=== PATIENT | male | born 1955 | race Caucasian/White ===

== ENCOUNTER 2022-10-09 13:25 | Outpatient (REF) | payer MEDICARE, SELFPAY ==
--- NOTE | ~2022-10-09 | CT_ITS ---
EXAMINATION: LUNG CANCER SCREENING CT CHEST WITHOUT CONTRAST CLINICAL INFORMATION: Current smoker with 54 pack year history COMPARISON: None TECHNIQUE: Multidetector volumetric CT imaging of the chest was obtained noncontrast using low dose screening CT technique. Axial thin section 0.625 mm reformations in soft tissue and lung windows were obtained. Sagittal and coronal reformations were obtained. Axial MIP images were also created and reviewed. This CT examination was performed using dose optimization techniques as appropriate, variously including the following: *Automated exposure control *Adjustment of mA and/or kV according to patient size (this includes techniques or standardized protocols for targeted exams where dose is matched to indication/reason for exam; i.e. extremities or head) *Use of iterative reconstruction technique TOTAL EXAM DLP: 57.3 mGy-cm FINDINGS: PULMONARY NODULES (see cotton images): No suspicious pulmonary nodules. LUNGS / PLEURA: Moderate emphysema. Diffuse moderate bronchial wall thickening without bronchiectasis. Dependent polypoid filling defect within the proximal left main stem bronchus at the diane highly suspected to represent secretions.. No pleural effusion or pneumothorax. MEDIASTINUM / YOSI: Heart normal in size without pericardial effusion. Ascending aorta measures 4.0 cm. No lymphadenopathy. Coronary calcifications present. Imaged thyroid gland unremarkable. CHEST WALL / AXILLA: Unremarkable. UPPER ABDOMEN: Included portions grossly unremarkable allowing for limitations in technique. OSSEOUS STRUCTURES: No acute or suspicious osseous abnormalities. CT/CT lung screening IMPRESSION: * There is a 6 mm dependent polypoid structure in the proximal left main stem bronchus highly favored to represent secretions, however technically indeterminant as there is no appreciable interspersed air to confirm that it might represent secretions/mucous (as opposed to soft tissue nodule). Therefore, short interval follow-up is required. * No pulmonary nodules of significance. * Moderate emphysema. ASSESSMENT: Lung RADS category: 4 A. Suspicious. Findings for which additional diagnostic testing and/or tissue sampling is recommended. Three-month low-dose CT is recommended. PET/CT scan may be used when there is a greater than or equal to 8 mm solid component. Probability of malignancy 5-15%. RECOMMENDATION: Follow up low dose CT chest in 3 months.
== END 2022-10-09 13:26 | disposition home or self-care (01) ==
LOC: HO.CT 13:25
PROVIDERS: PCP Internal Medicine; Visit Provider Physician Assistant Medical
DX: Z12.2 Encounter for screening for malignant neoplasm of respiratory organs (principal); F17.210 Nicotine dependence, cigarettes, uncomplicated
CPT/HCPCS: 71271; G0296

== ENCOUNTER 2023-05-18 07:39 | Outpatient (REF) | payer MEDICARE, SELFPAY ==
--- NOTE | ~2023-05-18 | CT_ITS ---
EXAMINATION: CT CHEST SCREENING CLINICAL INFORMATION: Nicotine dependence, smokes 1 pack per day with 30 pack-year history. COMPARISON: CT lung screening 10/09/2022, CT abdomen/pelvis 05/15/2009 (report only). TECHNIQUE: Multidetector volumetric CT imaging of the chest is performed without contrast using low-dose technique. Additional 2D coronal and sagittal reformatted images and axial 3D maximum intensity projection (MIP) images are generated on the CT workstation. This CT examination was performed using dose optimization techniques as appropriate, variously including the following: *Automated exposure control *Adjustment of mA and/or kV according to patient size (this includes techniques or standardized protocols for targeted exams where dose is matched to indication/reason for exam; i.e. extremities or head) *Use of iterative reconstruction technique DLP: 47 mGy-cm FINDINGS: LUNGS: Mild emphysematous changes are present. Bronchial wall thickening is seen. No suspicious pulmonary nodules. The previously seen dependent polypoid filling defect within the proximal left main stem bronchus at the diane is no longer present and represented secretions which have cleared. No concerning lung masses or nodules are seen. MEDIASTINUM: The mediastinum is unremarkable. A retrosternal lymph node has decreased in size from 8 to 6 mm. Thyroid is unremarkable. The ascending aorta is prominent at 4 cm, unchanged. CORONARY ARTERY CALCIFICATION: None visualized on this study. PLEURA: There is no pleural effusion. No pleural mass or thickening. AXILLA: No lymphadenopathy. UPPER ABDOMEN: The liver has a nodular border appearing somewhat cirrhotic with hypertrophy of the left lobe. A tiny amount of ascites is present around the liver and spleen. OSSEOUS STRUCTURES: Unremarkable. CT/CT lung screen follow up IMPRESSION: No findings to suggest malignancy in the chest. Prominent ascending aorta at 4.0 cm. Nodular liver with small amount of ascites suggests cirrhosis. Please correlate clinically and with LFTs. ASSESSMENT: Lung-RADS category 1: Negative. RECOMMENDATION: Routine annual low-dose CT screening in 12 months.
== END 2023-05-18 07:40 | disposition home or self-care (01) ==
LOC: HO.CT 07:39
PROVIDERS: PCP Internal Medicine; Visit Provider Physician Assistant Medical
DX: F17.210 Nicotine dependence, cigarettes, uncomplicated (principal)
CPT/HCPCS: 71250

== ENCOUNTER 2023-07-02 09:40 | Outpatient (REF) | payer MEDICARE, SELFPAY ==
--- NOTE | ~2023-07-02 | US_ITS ---
EXAMINATION: US RETROPERITONEAL LIMITED (AORTA) CLINICAL INFORMATION: Smoker. COMPARISON: None available. TECHNIQUE: Wilkes-scale, color Doppler and spectral Doppler evaluation of the abdominal aorta. FINDINGS: Atherosclerosis. The measurements of the aorta in maximum AP and transverse dimensions respectively are as follows: Proximal: 2.6 x 2.4 cm. Mid: 2.1 x 2.3 cm. Distal: 1.9 x 2.0 cm. PSV: 97.2 cm/s. The measurements of the common iliac arteries in maximum AP and TRV dimensions are as follows: Right Common Iliac Artery: 1.0 x 1.0 cm. Left Common Iliac Artery: 0.93 x 1.0 cm. US/US aorta IMPRESSION: No abdominal aortic aneurysm. Atherosclerosis.
== END 2023-07-02 09:41 | disposition home or self-care (01) ==
LOC: HO.HMGCX 09:40
PROVIDERS: PCP Internal Medicine; Visit Provider Internal Medicine
DX: Z13.6 Encounter for screening for cardiovascular disorders (principal); F17.210 Nicotine dependence, cigarettes, uncomplicated
CPT/HCPCS: 76775

== ENCOUNTER 2024-07-20 08:55 | Outpatient (AMB) | payer MEDICARE, SELFPAY ==
[2024-07-20 09:08] VITALS: BP 130/90; PULSE 57; O2SAT 98
--- NOTE | 2024-07-20 09:08 | MHC.OFFWIV ---
Intake Vital Signs 07/20/24 09:08 Weight 159 lb BP 130/90 H Blood Pressure Location Lt brachial Position Sitting Pulse 57 Pulse Source Pulse Oximeter Pulse Oximetry (%) 98 Oxygen Delivery Method Room Air Intake Visit Reasons: EP-sob Intake Note: Patient here for SOB that has been present for a while now. Patient Tobacco Use Status: Current everyday Tobacco user Allergies No Known Allergies Allergy (Unverified 07/20/24 09:15) Do you need a note to return to daycare/school/sports/work: No HPI HPI Comments History of Present Illness Details 69 y/o male patient who presents to the walk in clinic with c/o Dry mouth for over a year now. Reports waking up every morning with Dry sticky mouth. Denies taking any routine medications or OTC supplements. Denies seeing a Dentist for years now or having routine dental cleanings. Reports a very bad experience in the past. Pt got upset with me during the appointment because I could not resolve his issue. Reports that he came here today to see his PCP and he does not understand why he is seeing me instead. Pt walked out of in the middle of examination. [facility] Medical History (Updated 07/20/24 @ 10:10 by Kenzie Zavala NP) Dry mouth, unspecified Acute respiratory disease History of rib fracture Nicotine dependence, cigarettes, uncomplicated Colonoscopy refused Immunization refused Tremor of both hands Lesion of skin of scalp Cataracts, bilateral Increasing shortness of breath Chronic cough Closed right hand fracture History of skull fracture Decreased hearing of both ears Surgical History (Updated 07/14/22 @ 01:52 by Raven Lizama MD) No pertinent past surgical history Family History (Updated 07/03/22 @ 09:36 by Raven Lizama MD) Mother Alzheimer's dementia Uterine cancer Brother Hepatitis C Social History (Updated 10/09/22 @ 13:27 by Krystyna Peña PA-C) Housing: House Patient Tobacco Use Status: Current everyday Tobacco user Years Smoked: (current smoker - onset 11, x 54yrs, max 1-2ppd, now 1/4 to 1ppd - 70pyh) e-Cigarette/Vaping Use: Never Used service: No Current occupational status: employed Cognitive needs: No Hearing needs: No Vision needs: Yes Review of Systems Const All systems reviewed & are unremarkable except as noted in HPI and below Physical Exam Vital Signs: Last Vital Signs Pulse 57 07/20/24 09:08 BP 130/90 H 07/20/24 09:08 Pulse Ox 98 07/20/24 09:08 Oxygen Delivery Method Room Air 07/20/24 09:08 Const General: no acute distress and anxious Orientation/consciousness: patient oriented x3 Neuro General: patient oriented x3, gait normal and moves all extremities Psych Speech and movement: Normal speech and movement present Affect: Irritable affect present Assessment & Plan Assessment & Plan (1) Dry mouth, unspecified: Code(s): R68.2 - Dry mouth, unspecified Plan: Incomplete Examination. Pt walked out of the appointment upset. Advised Pt to scheduled an appointment with his PCP. Advised to follow up with a Dentist regarding Dry mouth and dental care. Coding Level of Care Code Est Pt Level 4 (78541) Diagnoses Dry mouth, unspecified R68.2 Time Spent (min) 20
== END 2024-07-20 10:03 | disposition home or self-care (01) ==
PROVIDERS: PCP Internal Medicine; Visit Provider Nurse Practitioner Family
DX: R68.2 Dry mouth, unspecified (principal)

== ENCOUNTER → 2024-07-20 08:55 | Outpatient (BNVA) | payer MEDICARE, SELFPAY | PROVIDERS: PCP Internal Medicine; Visit Provider Nurse Practitioner Family | DX: R68.2 Dry mouth, unspecified (principal) | CPT/HCPCS: 99212 ==

== ENCOUNTER → 2024-09-14 12:50 | Outpatient (BNVA) | payer MEDICARE, SELFPAY | PROVIDERS: PCP Internal Medicine; Visit Provider Internal Medicine | DX: Z13.89 Encounter for screening for other disorder (principal) ==

== ENCOUNTER 2024-10-16 09:23 | Emergency (ER) | payer MEDICARE, SELFPAY ==
--- NOTE | ~2024-10-16 | XR_ITS ---
EXAMINATION: XR CHEST CLINICAL INFORMATION: CP COMPARISON: None available. TECHNIQUE: Frontal view of the chest was obtained. FINDINGS: The cardiac, hilar, and mediastinal contours are normal. The lungs are mildly hyperaerated, suggesting COPD. Lungs are otherwise clear bilaterally. No pneumothorax or effusion. No focal osseous or soft tissue abnormality. XR/XR chest 1V IMPRESSION: Mild pulmonary hyperaeration. No active superimposed disease. Electronically signed by: Jono Slaughter MD 10/16/2024 09:53 AM EDT
--- NOTE | ~2024-10-16 | CT_ITS ---
EXAMINATION: CT ANGIOGRAM CHEST CLINICAL INFORMATION: Atrial flutter DLP: 233 mGY*cm COMPARISON: CT chest lung screening May 18, 2023 TECHNIQUE: Multiple axial images were obtained through the chest after the administration of 65 mL of Omnipaque 350 intravenous contrast. Extensive vascular post-processing including two-dimensional and three-dimensional reformatted images were created and reviewed on an independent workstation. This CT examination was performed using dose optimization techniques as appropriate, variously including the following: *Automated exposure control *Adjustment of mA and/or kV according to patient size (this includes techniques or standardized protocols for targeted exams where dose is matched to indication/reason for exam; i.e. extremities or head) *Use of iterative reconstruction technique FINDINGS: Vasculature: There is opacification through secondary divisions and partial opacification through the tertiary divisions the pulmonary arteries. There are no filling defects in those portions of the examination. Minimal atherosclerotic calcification is seen in the aortic arch. LUNGS: Again noted is moderate centrilobular hyperlucency and otherwise groundglass densities in the lungs. There is a new 7x11 mm solid pulmonary nodule in the posterior basal right lower lobe with angular margins contacting pleura. Mediastinum: Heart size is within normal limits. There is no adenopathy. Coronary artery calcifications: None visualized Pleura: There is no pleural thickening and no pleural effusion. Axilla: No mass or adenopathy. Upper abdomen: Liver has a nodular contour and scallop margins. There is perihepatic ascites. Coarse calcifications in the gallbladder fossa are likely within a decompressed gallbladder. Bones: Bridging anterior osteophytes are present in the mid and lower thoracic spine and there is diffuse mild disc space narrowing. CT/CT angio chest PE protocol IMPRESSION: No evidence of pulmonary artery embolus. Tertiary divisions of pulmonary arteries were incompletely also opacified due to bolus timing. There is a new 7 x 11 mm pulmonary nodule in the posterior basal right lower lobe. Fleischner Society recommends the following: Consider CT at 3 months, PET/CT, or consultation for biopsy. Moderate centrilobular emphysema. Cirrhotic liver with a small amount of ascites. Cholelithiasis. Fleischner guidelines were followed. Electronically signed by: Dank Coreas MD 10/16/2024 12:06 PM EDT
--- NOTE | 2024-10-16 09:25 | ECG_ITS ---
Test Reason : cp Blood Pressure : */* mmHG Vent. Rate : 156 BPM Atrial Rate : * BPM P-R Int : * ms QRS Dur : 122 ms QT Int : 292 ms P-R-T Axes : * 67 75 degrees QTcB Int : 470 ms Supraventricular tachycardia Nonspecific ST abnormality Abnormal ECG When compared with ECG of 15-May-2009 09:35, Supraventricular tachycardia has replaced Sinus rhythm Vent. rate has increased by 90 bpm Referred By: Generic ED Physician Electronically Signed By: CORY GRIFFITHS MD
[2024-10-16 09:48] VITALS: BP 147/84; PULSE 156; RESP 18; TEMP 36.7; O2SAT 96; BMI 26.2
--- NOTE | 2024-10-16 09:55 | ED_ITS ---
HPI - Chest Pain General Chief Complaint: Chest Pain Stated Complaint: chest Pain Time Seen by Provider: 10/16/24 09:55 Source: patient Mode of arrival: ambulatory Limitations: no limitations History of Present Illness ED Provider: HPI narrative: 69-year-old male, states has had recurrent history of chest pain, prior workup to see if he has lung cancer, presenting with chest pain that started 08:00 in the morning, nonexertional no fevers chills no nausea no vomiting. He is a smoker. Related Data Previous Rx's ?Medication ?Instructions ?Recorded aspirin 81 mg chewable tablet 81 mg PO DAILY #90 tabs 10/16/24 (Tomasz Chewable Low Dose Aspirin) metoprolol succinate 25 mg capsule 25 mg PO DAILY #90 ea 10/16/24 sprinkle, ext. release 24 hr Allergies Allergy/AdvReac Type Severity Reaction Status Date / Time No Known Allergies Allergy Verified 10/16/24 09:53 Review of Systems 2 Constitutional: Constitutional: Reports as per HPI [facility] Past Medical History Medical History (Updated 10/16/24 @ 10:20 by David Stanton, DO) Dry mouth, unspecified History of rib fracture Nicotine dependence, cigarettes, uncomplicated Colonoscopy refused Immunization refused Tremor of both hands Lesion of skin of scalp Cataracts, bilateral Increasing shortness of breath Chronic cough Closed right hand fracture History of skull fracture Decreased hearing of both ears Surgical History (Updated 07/14/22 @ 01:52 by Raven Lizama MD) No pertinent past surgical history Family History Family History (Updated 07/03/22 @ 09:36 by Raven Lizama MD) Mother Alzheimer's dementia Uterine cancer Brother Hepatitis C Social History Social History (Updated 10/09/22 @ 13:27 by Krystyna Peña PA-C) Housing: House Unable to assess alcohol history related to: Unknown Patient Tobacco Use Status: Current everyday Tobacco user Years Smoked: (current smoker - onset 11, x 54yrs, max 1-2ppd, now 1/4 to 1ppd - 70pyh) Smoked in Last 30 Days: Yes e-Cigarette/Vaping Use: Never Used Use of substances other than those prescribed or required for medical reasons: No Advance Directives: No Advance Directives Information Provided: No Do you have a plan to hurt others: No Plan service: No Current occupational status: employed Cognitive needs: No Hearing needs: No Vision needs: Yes Physical Exam 2 Vital Signs: Vital Signs: Last Vital Signs Temp 97.9 F 10/16/24 12:35 Pulse 63 10/16/24 12:35 Resp 16 10/16/24 12:35 BP 131/64 10/16/24 12:35 Pulse Ox 95 10/16/24 12:35 O2 Del Method Room Air 10/16/24 12:35 BMI result Body Mass Index 26.2 Const: Other: * Gen: ?Overall well-appearing patient * HEENT: PERRLA, EOMI, MMM, * Neck: Supple, no LAD * CV: Rapid and regular, no obvious murmurs * Resp: ?No wheezing rales rhonchi no stridor moving air well * Abd: ?Bowel sounds are present, no tenderness no rebound no rigidity * MSK: FROM, strength 5/5 all extremities * Skin: Warm, dry, intact, * Neuro: ?Alert and oriented x3, moving upper and lower extremities symmetrically, no obvious facial asymmetry noted Medications Administered Discontinued Medications Generic Name Dose Route Start Last Admin Trade Name Freq PRN Reason Stop Dose Admin Diltiazem HCl 20 mg 10/16/24 10:10 10/16/24 12:27 Diltiazem Hcl 50 Mg/10 Ml Vial IVPUSH 10/16/24 10:11 Not Given STAT STA Sodium Chloride 1,000 mls @ 999 mls/hr 10/16/24 10:15 10/16/24 12:27 Ns IV 10/16/24 11:15 Infused .Q1H1M AMY Infusion Medical Decision Making Medical Decision Making MDM Narrative: 10:13 patient presented with chest pain, noted to have what appears to be 2-1 flutter with a heart rate 155, he states he has had chest pain intermittently on and off, this is the worst pain that he has had, I started discussing with the patient that he has atrial flutter and given the fact that he is having chest pain he is a smoker I told him that I anticipate he will likely need to be admitted. The patient told me know certain words that he is not going to be admitted to the hospital under any conditions. We will have a discussion regarding that after I obtain additional workup and manage him, if he is to be discharged or leaving a male make sure that he is started on rate control medications and anticoagulants. Unless h, D-dimer elevated we will obtain CTA is workup reveals PE, NSTEMI or any other significant abnormalities I will likely have no issues discharging him with medications and outpatient follow up. 1117; Pt self converted without diltiazem, does not have a PCP, anticipate that he will be discharged with a rate control medications and ASA [id number] score is 1 Differential Diagnosis Differential Diagnoses: The differential diagnosis associated with the presentation includes Atrial flutter, atrial fibrillation, ACS, PE, WPW, electrolyte derangements Admission/Observation Consideration of admission/observation: Escalation of care including admission/observation considered Lab Data MDM Lab Attestation statement: I reviewed the patient's lab results. 10/16/24 09:55 10/16/24 09:55 Labs: Lab Results 10/16/24 10/16/24 Range/Units 09:55 10:36 WBC 6.3 (4.8-10.8) X10*3/uL RBC 4.36 L (4.60-5.80) X10*6/uL Hgb 14.1 (14.0-18.0) g/dl Hct 39.3 L (42.0-52.0) % MCV 90.1 (80.0-98.0) fL MCH 32.3 (27.0-33.0) pg MCHC 35.9 (31.0-36.0) g/dl RDW 14.9 (11.0-16.0) % Plt Count 102 L (160-400) X10*3/uL MPV 11.5 (9.4-12.4) fL Immature Gran % (Auto) 0.3 (0.0-0.4) % Neut % (Auto) 70.8 (45-73) % Lymph % (Auto) 15.3 L (20-40) % Yell % (Auto) 10.5 (2-11) % Eos % (Auto) 2.5 (0-4) % Baso % (Auto) 0.6 (0-2) % Lymph # (Auto) 1.0 L (1.2-4.9) X10*3/uL Yell # (Auto) 0.7 (0.1-1.2) X10*3/uL Eos # (Auto) 0.2 (0.0-0.4) X10*3/uL Baso # (Auto) 0.0 (0.0-0.2) X10*3/uL Abs Immat Gran (auto) 0.02 (0.00-0.03) X10*3/uL Absolute Neuts (auto) 4.5 (2.0-8.3) x10*3/uL Absolute Nucleated RBC 0.000 (0.0-0.012) X10*3/uL Nucleated RBC % (auto) 0.0 (0.0-0.2) /100WBC D-Dimer High Sensitivty 407 NG/ML Hold Blue Top SEE NOTE Sodium 140 (135-145) mmol/L Potassium 4.0 (3.3-5.1) mmol/L Chloride 109 H (96-108) mmol/L Carbon Dioxide 23 (22-29) mmol/L Anion Gap 12 (12-20) BUN 9 (9-16) mg/dL Creatinine 0.67 (0.5-1.4) mg/dL Estim Creat Clear Calc 89.5 Estimated GFR > 60 Random Glucose 137 H (60-115) mg/dL Calcium 9.0 (8.4-10.2) mg/dL Magnesium 1.6 (1.6-2.6) mg/dL Troponin I High Sens 5.7 (<3.5-35.0) ng/L TSH 1.21 (0.32-4.0) uIU/mL Independent Interpretation I performed an independent interpretation of an: EKG (156, Atrial flutter 2:1 #1 ECG, ECG #2: 80 BPM, Normal ECG) Radiology Impression Discussion of test interpretation with radiology: I have reviewed the radiologist's reading. Radiologist Impression: No evidence of pulmonary artery embolus. Tertiary divisions of pulmonary arteries were incompletely also opacified due to bolus timing. There is a new 7 x 11 mm pulmonary nodule in the posterior basal right lower lobe. Fleischner Society recommends the following: Consider CT at 3 months, PET/CT, or consultation for biopsy. Critical Care Time Critical Care Time Critical Care Time: Yes Total Critical Care Time: 60 Attestation: Time is exclusive of separately billable procedures. Time includes: direct patient care, patient reassessment, coordination of patient care, interpretation of data (laboratory data, pulse oximetry, arterial blood gases and chest xrays), review of patient's medical records, medical consultation and documentation of patient care. Procedures excluded from critical care time: central intravenous line placement and electrocardiography. Discharge Plan Discharge Clinical Impression: Atrial flutter Instructions: Atrial Flutter (ED) Additional Instructions: So seems that the pain you have been experiencing for many years is likely due to atrial flutter which is more or less the same thing as atrial fibrillation that just an abnormal way of heartbeats, it does place her at a risk for stroke and blood clots, and so you are supposed to be on some kind of blood thinner, the blood thinner and we are going to use in your case is aspirin 81 mg once you have a PCP this will be adjusted on your needs, I am also starting her on Metoprolol which is all heart rate control medication, hopefully this will keep you out of this abnormal heart rate and prevent you having chest pain, I also recommend that you stop smoking completely, and continues to work on obtaining a PCP, your workup today did not reveal any stress on your heart, you self converted into a normal rhythm without me administered any medications that which is a common thing, however the risks still remain any other issues concerns come back to the ER Take Metoprolol at any point in the day but just make sure you take it at the same time usually people take it in the morning this is a long-acting medication, should you have any dizziness, discontinue it. Your CAT scan did not show any blood clots there were again some lesions that you have had before, and were aware of and that would need repeat CAT scan in the future for monitoring Prescriptions: New aspirin [Tomasz Chewable Aspirin] 81 mg tablet,chewable 81 mg PO DAILY Qty: 90 0RF metoprolol succinate 25 mg capsule,sprinkle,ER 24hr 25 mg PO DAILY Qty: 90 0RF Print Language: Slovenian
[2024-10-16 10:01] LABS: MANUAL DIFF FLAG NO
[2024-10-16 10:03] VITALS: PULSE 158
[2024-10-16 10:04] VITALS: BP 147/84; PULSE 156; RESP 18; TEMP 36.7; O2SAT 96
[2024-10-16 10:05] LABS: Basophils Percent Auto 0.6 % (0-2); Eosinophils Absolute Auto 0.2 X10*3/uL (0.0-0.4); Eosinophils Percent Auto 2.5 % (0-4); Hematocrit 39.3 % (42.0-52.0); Hemoglobin 14.1 g/dl (14.0-18.0); Imm Gran Abs Auto 0.02 X10*3/uL (0.00-0.03); Imm Gran Pct Auto 0.3 % (0.0-0.4); Lymphocytes Percent Auto 15.3 % (20-40); Mean Corpuscular HGB Conc 35.9 g/dl (31.0-36.0); Mean Corpuscular Hemoglobin 32.3 pg (27.0-33.0); Mean Corpuscular Volume 90.1 fL (80.0-98.0); Mean Platelet Volume 11.5 fL (9.4-12.4); Monocytes Absolute Auto 0.7 X10*3/uL (0.1-1.2); Monocytes Percent Auto 10.5 % (2-11); Neutrophils Absolute Auto 4.5 x10*3/uL (2.0-8.3); Neutrophils Percent Auto 70.8 % (45-73); Platelet Count 102 X10*3/uL (160-400); Red Blood Count 4.36 X10*6/uL (4.60-5.80); Red Cell Distribution Width 14.9 % (11.0-16.0); White Blood Count 6.3 X10*3/uL (4.8-10.8)
[2024-10-16 10:18] LABS: Anion Gap 12 (12-20); Blood Urea Nitrogen 9 mg/dL (9-16); Carbon Dioxide 23 mmol/L (22-29); Chloride 109 mmol/L (96-108); Creatinine Clr Calc Pharmacy 89.5; Estimated Glomerular Filt Rate > 60; Glucose Random 137 mg/dL (60-115); Sodium 140 mmol/L (135-145)
[2024-10-16] MEDS: 0.9 % Sodium Chloride 1,000 ML 999 ML IV (10:18)
[2024-10-16 10:26] VITALS: BP 143/72; PULSE 84; RESP 18
[2024-10-16 10:26] LABS: Troponin-I High Sensitivity 5.7 ng/L (<3.5-35.0)
--- NOTE | 2024-10-16 10:26 | PC.NURSE ---
cardizam on hold at this time the hr dropped to 89 after using the urinal aware
--- NOTE | 2024-10-16 10:35 | ECG_ITS ---
Test Reason : rhythm change Blood Pressure : */* mmHG Vent. Rate : 80 BPM Atrial Rate : 80 BPM P-R Int : 176 ms QRS Dur : 90 ms QT Int : 386 ms P-R-T Axes : 72 41 48 degrees QTcB Int : 445 ms Normal sinus rhythm Normal ECG When compared with ECG of 16-Oct-2024 09:29, Sinus rhythm has replaced Supraventricular tachycardia Vent. rate has decreased by 76 bpm Referred By: David Stanton Electronically Signed By: CORY GRIFFITHS MD
--- NOTE | 2024-10-16 10:35 | PC.NURSE ---
69 M presents to ED with pain in the center of his chest, was a 10/10 earlier this morning and is now a 3/10. Pt sts he does become SOB at times, pain improved with rest. Pt was tachycardic, sinus tach in 150s upon arrival and converted back to normal sinus in 80s after using the urinal. Pt is A+Ox4 and ambulatory. Denies any SOB at this time. RR even and unlabored. Pt denies any n/v/c/d. Pt sts chest pain has come and gone for a couple months but got really back this AM which is why he came in.
[2024-10-16 10:49] LABS: D Dimer High Sensitivity 407 NG/ML
[2024-10-16 11:01] LABS: Magnesium 1.6 mg/dL (1.6-2.6)
[2024-10-16 11:22] LABS: TSH reflex Free T4 1.21 uIU/mL (0.32-4.0)
[2024-10-16 12:35] VITALS: BP 131/64; PULSE 63; RESP 16; TEMP 36.6; O2SAT 95
[2024-10-16 13:25] VITALS: BP 131/64; PULSE 63; RESP 16; TEMP 36.6; O2SAT 95
== END 2024-10-16 13:26 | disposition home or self-care (01) ==
PROVIDERS: Emergency Provider Emergency Medicine
DX: I48.92 Unspecified atrial flutter (principal); R07.89 Other chest pain; I47.10 Supraventricular tachycardia, unspecified; R11.2 Nausea with vomiting, unspecified; F17.210 Nicotine dependence, cigarettes, uncomplicated; Z79.899 Other long term (current) drug therapy
CPT/HCPCS: 36415; 71045; 71275; 80048; 83735; 84443; 84484; 85025; 85379; 93005; 96360; 96361; 99285

== ENCOUNTER → 2024-10-16 09:25 | Outpatient (BNV) | payer MEDICARE, SELFPAY | PROVIDERS: Emergency Provider Emergency Medicine; Visit Provider Internal Medicine Cardiovascular Disease | DX: Z13.6 Encounter for screening for cardiovascular disorders (principal) | CPT/HCPCS: 93010 ==

== ENCOUNTER → 2024-10-16 09:26 | Outpatient (BNV) | payer MEDICARE, SELFPAY | PROVIDERS: Emergency Provider Emergency Medicine; Visit Provider Radiology Diagnostic Radiology | DX: J43.2 Centrilobular emphysema (principal); R91.1 Solitary pulmonary nodule; K80.20 Calculus of gallbladder without cholecystitis without obstruction; K74.60 Unspecified cirrhosis of liver; R18.8 Other ascites; R07.9 Chest pain, unspecified | CPT/HCPCS: 71045; 71275 ==

== ENCOUNTER 2025-01-22 17:19 | Inpatient (IN) | payer MEDICARE, SELFPAY ==
--- NOTE | ~2025-01-22 | XR_ITS ---
EXAMINATION: XR CHEST 2 VIEWS HISTORY: s/p thoracentesis COMPARISON: Comparison is made with the prior examination dated 01/22/2025. FINDINGS: Inspiratory and expiratory PA views of the chest are submitted. There is a small right pleural effusion. The lungs are clear. There is no pneumothorax or pulmonary vascular congestion. The heart is normal in size. The bones are intact. XR/XR chest 2V IMPRESSION: Small right pleural effusion. No pneumothorax. Electronically signed by: Alberto Murry MD 01/23/2025 08:58 AM EDT
--- NOTE | ~2025-01-22 | XR_ITS ---
CLINICAL HISTORY: dyspnea, chest pain 2 view chest x-ray Comparison: CT/SC/SR - CT CHEST ANGIOGRAPHY WITH IV CONTRAST - 10/16/24 11:28 EDT Findings: Moderate right pleural effusion. Adjacent airspace opacity. No left-sided pleural effusion. Clear left lung. Normal size heart. No acute fracture. IMPRESSION: Moderate right pleural effusion with adjacent atelectasis and/or infiltrate. This document has been electronically signed by: Haydee Painter MD on 01/22/2025 18:26:59
--- NOTE | ~2025-01-22 | US_ITS ---
EXAMINATION: US ABDOMEN LIMITED HISTORY: RUQ, Cholelithiasis, elevated LFTs TECHNIQUE: Real-time grayscale ultrasound imaging of the right upper quadrant was performed and images were reviewed. COMPARISON: There are no prior studies available for comparison. FINDINGS: Liver: The right lobe of the liver measures 11.7 cm in size. The left lobe of the liver measures 11.2 cm in size. The liver demonstrates a nodular contour, consistent with cirrhosis. No focal mass or intrahepatic biliary ductal dilatation is identified. There is normal hepatopedal flow in the portal vein. Gallbladder and biliary tree: Multiple shadowing calculi are noted in the gallbladder. There is no wall thickening or pericholecystic fluid. There is no sonographic Sams sign. The common bile duct is normal in caliber measuring 3 mm. Right Kidney: The right kidney measures 9.8 cm in length. The right kidney is unremarkable, without evidence of masses, hydronephrosis, or calculi. Pancreas: There is a 1.3 x 1.1 x 1.8 cm hypoechoic structure in the region of the pancreatic head. This could represent a pancreatic head mass or an adjacent lymph node. Abdominal aorta and inferior vena cava: The visualized portions of the abdominal aorta and inferior vena cava are normal in caliber. There is no free fluid in the right upper quadrant. US/US abdomen limited IMPRESSION: 1. Cirrhosis of the liver. 2. 1.3 x 1.1 x 1.8 cm hypoechoic structure in the region of the pancreatic head. Pancreatic protocol MRI is recommended to exclude a mass. 3. Cholelithiasis. Electronically signed by: Alberto Murry MD 01/23/2025 11:15 AM EDT
--- NOTE | ~2025-01-22 | CT_ITS ---
CLINICAL HISTORY: right sided pleural effusion CT angiography chest with contrast. With MIP MPR Postprocessing. Comparison: Chest CT from 10/16/2024 Findings: No central pulmonary embolism. New moderate right-sided pleural effusion. No pneumothorax. Moderate to severe emphysematous changes are redemonstrated. Right basilar atelectasis and/or consolidation also new. Postobstructive phenomenon not excluded. Small mediastinal and hilar lymph nodes are nonspecific and may be reactive. Redemonstration of the liver surface nodularity of the cirrhosis, cholelithiasis, free fluid, and splenomegaly in the imaged abdomen. Mild rib deformities appear old/chronic. Degenerative changes include imaged shoulders and imaged spine. Bridging osteophytes, facet arthropathy, and Schmorl's nodes are multifocal. IMPRESSION: 1. No central pulmonary embolism. 2. Moderate right-sided pleural effusion with underlying atelectasis/consolidation. Recommend attention on follow-up to ensure resolution. This document has been electronically signed by: Jaden Hudson MD on 01/22/2025 22:51:38
--- NOTE | ~2025-01-22 | US_ITS ---
EXAMINATION: ULTRASOUND-GUIDED right THORACENTESIS CLINICAL INFORMATION: Moderate right pleural effusion. COMPARISON: CT chest 01/22/2025 TECHNIQUE: Only explaining ultrasound-guided right thoracentesis procedure, benefits and risk, a written consent was obtained. Patient was placed upright sitting on the ED stretcher and preliminary ultrasound imaging was obtained the right posterior chest. An optimal site was selected along the right infra scapular line approximately 10th interspace and marker was placed on the skin. The marked skin site was cleaned and draped in usual sterile manner. 1% lidocaine was inserted puncture site. Through a small skin incision a 5 Romansh Fitsistanteh catheter was advanced from the skin into the pleural space. After observing fluid return, stylet was withdrawn and catheter connected to vacuum bottle via connecting cannula. After obtaining all fluid and observing no more fluid return, catheter was withdrawn making show no air leak thin. Complete hemostasis achieved at puncture site. Sterile dressing applied post procedure. Patient tolerated procedure extremely well. FINDINGS: On preliminary ultrasound imaging there is moderate right pleural effusion. There is right lower lobe collapse lung is well visualized. Approximately 1.1 L of clear yellowish fluid drained from the right pleural space. Part of this fluid was sent to lab for diagnostic purpose. US/US thoracentesis IMPRESSION: Successful ultrasound-guided right therapeutic and diagnostic thoracentesis . Electronically signed by: Shivam Osorio MD 01/23/2025 01:04 PM EDT
--- NOTE | 2025-01-22 17:19 | ECG_ITS ---
Test Reason : CP Blood Pressure : */* mmHG Vent. Rate : 52 BPM Atrial Rate : 52 BPM P-R Int : 104 ms QRS Dur : 96 ms QT Int : 436 ms P-R-T Axes : 67 23 47 degrees QTcB Int : 405 ms Sinus bradycardia with short PA Otherwise normal ECG When compared with ECG of 16-Oct-2024 10:36, PA interval has decreased Vent. rate has decreased by 28 bpm Referred By: Carleen Stewart Electronically Signed By: SHIRAZ BALDWIN
--- NOTE | 2025-01-22 17:56 | ED_ITS ---
HPI - General Adult General Chief complaint: Chest Pain Stated complaint: chest pain, difficulty breathing Time Seen by Provider: 01/22/25 20:28 Source: patient, RN notes reviewed and old records reviewed Mode of arrival: ambulatory Limitations: no limitations History of Present Illness ED Provider: Nahum TAYLOR narrative: 70-year-old male with past medical history significant for atrial flutter on a baby aspirin, metoprolol presents for evaluation of right-sided chest pain. Patient reports chest pain for the last few days pain Today while standing up from a seated position he felt extremely short of breath more so than baseline. He does admit to a 56/57 pack year smoking history Denies any fevers, chills. He has no other complaints or concerns at this time He is due to see a new primary doctor this coming Wednesday Related Data Home Medications ?Medication ?Instructions ?Recorded ?Confirmed diltiazem HCl 120 mg capsule,24 120 mg PO DAILY 01/23/25 hr,extended release Previous Rx's ?Medication ?Instructions ?Recorded aspirin 81 mg chewable tablet 81 mg PO DAILY #90 tabs 10/16/24 (Tomasz Chewable Low Dose Aspirin) metoprolol succinate 25 mg capsule 25 mg PO DAILY #90 ea 10/16/24 sprinkle, ext. release 24 hr Allergies Allergy/AdvReac Type Severity Reaction Status Date / Time No Known Allergies Allergy Verified 01/22/25 18:00 Review of Systems 2 Constitutional: Constitutional: Denies body ache(s), Denies chills, Denies fatigue and Denies fever(s) Eyes: Eyes: Denies blurry vision ENT: Denies vertigo and Denies dizziness Cardiovascular: Cardiovascular: Reports chest pain, Reports chest pain at rest, Reports chest pain with activity, Reports dyspnea and Reports dyspnea on exertion Respiratory: Respiratory: Denies cough, Reports dyspnea and Reports dyspnea on exertion Gastrointestinal: Gastrointestinal: Denies abdominal pain, Denies nausea and Denies vomiting Musculoskeletal: Musculoskeletal: Denies back pain Integumentary/Breasts: Skin/Breast: Denies rash Neurologic: Denies vertigo and Denies dizziness Endocrine: Endocrine: Denies fatigue FORMERLY [facility], [facility]–1983 Past Medical History Medical History Cataract Marijuana use Alcohol abuse Tobacco dependence Pulmonary nodule Cirrhosis Dry mouth, unspecified History of rib fracture Nicotine dependence, cigarettes, uncomplicated Colonoscopy refused Immunization refused Tremor of both hands Lesion of skin of scalp Cataracts, bilateral Increasing shortness of breath Chronic cough Closed right hand fracture History of skull fracture Decreased hearing of both ears Surgical History No pertinent past surgical history Family History Family History Mother Alzheimer's dementia Uterine cancer Brother Hepatitis C Social History Social History Housing: House Unable to assess alcohol history related to: Unknown Patient Tobacco Use Status: Current everyday Tobacco user Years Smoked: (current smoker - onset 13, x 54yrs, max 1-2ppd, now 1/4 to 1ppd - 70pyh) e-Cigarette/Vaping Use: Never Used service: Yes Current occupational status: employed Cognitive needs: No Hearing needs: No Vision needs: Yes Physical Exam ED Vital Signs: Vital Signs - 24 hr 01/22/25 17:57 01/22/25 20:34 01/22/25 22:47 Temperature 98.2 F 97.9 F 97.8 F Pulse Rate 49 L 58 50 Respiratory Rate 16 16 18 Blood Pressure 167/73 H 170/60 H 142/66 H Pulse Oximetry 94 95 96 Oxygen Delivery Method Room Air Room Air Room Air BMI result Body Mass Index 24.9 Const General: healthy appearing, comfortable, no acute distress, alert and awake Nutritional Appearance: well nourished Orientation/consciousness: patient oriented x3 HENMT Head: Yes normocephalic and Yes atraumatic Eyes Eyelids: Yes eyelids normal Conjunctivae: conjunctivae normal Sclerae: sclerae normal Corneas: corneas normal Pupils: Equal, round and reactive pupils present EOM: EOMs intact bilaterally Neck Neck: Yes full ROM Resp Other: Diminished on right Effort & Inspection: normal respiratory effort, able to speak in complete sentences and not labored Cardio Rate: regular rate Rhythm: regular rhythm GI Inspection: No distended Palpation (GI): Soft to palpation, not firm, nontender, no guarding and not rigid Skin General skin exam: elasticity normal Neuro General: patient oriented x3 Cranial nerves: Yes Equal, round and reactive pupils present and Yes Bilaterally intact EOM present Cognition (Neuro): normal cognition Extrem Other: Moving all extremities well without any obvious deformities Course Course Course Narrative: This is a rapid medical exam performed by Grady Stewart NP: Additional HPI, ROS, PE not included below will be deferred to primary provider. Patient is a 70y/o M presenting with complaint of dyspnea for a few days, worse with exertion. Chest pain with bending forward. Seeing PCP on Wednesday. Plan: EKG, labs, CXR, viral serology Medications Administered Discontinued Medications Generic Name Dose Route Start Last Admin Trade Name Freq PRN Reason Stop Dose Admin Acetaminophen 975 mg 01/23/25 00:15 01/23/25 00:28 Acetaminophen 325 Mg Tablet PO 01/23/25 00:16 975 mg ONCE ONE Administration Iohexol 65 ml 01/22/25 21:47 01/22/25 21:48 Iohexol 350 Mg/Ml 100 Ml Infus..Btl IV 01/22/25 21:48 65 ml ONCE ONE Administration Lidocaine HCl 5 ml 01/23/25 08:50 01/23/25 08:50 Lidocaine Hcl 1 % Mpf 5 Ml Vial SUBCUT 01/23/25 08:51 5 ml ONCE ONE Administration Nicotine 14 mg 01/23/25 09:00 01/23/25 09:09 Nicotine 14 Mg Patch.Td24 TRANSDERMA Not Given DAILY AMY Sodium Chloride 3 ml 01/23/25 00:00 01/23/25 09:09 0.9 % Sodium Chloride Flush 3 Ml Syringe IVFLUSH 3 ml QSHIFT AMY Administration Medical Decision Making Medical Decision Making [facility] Narrative: 70-year-old male presents for evaluation of chest pain and shortness of breath. His vital signs are stable on arrival, he is afebrile, not hypoxic. He is bradycardic, EKG has been at 52 beats minute for sinus bradycardia with short IN. The patient reports that this is normal for him and likely due to his metoprolol use. His labs are reassuring, chest x-ray shows a moderate right- sided pleural effusion that is new since his last chest x-ray and CTA in October of this year. Plan to repeat the CT angiography given the new unilateral effusion. His vital signs are stable. Differential Diagnosis Differential Diagnoses: The differential diagnosis associated with the presentation includes Dyspnea on exertion Pleural effusion Lung cancer Pneumonia Bronchitis Admission/Observation Consideration of admission/observation: Escalation of care including admission/observation considered Lab Data MDM Lab Attestation statement: I reviewed the patient's lab results. No leukocytosis or significant anemia. [place] [address]. There was no significant left shift. Chemistries are significant for a T bili of 2.4, elevated AST and ALT of unclear significance. The patient has no abdominal pain or tenderness on exam. Troponin is undetectable. 01/23/25 03:49 01/23/25 03:49 Labs: Lab Results 01/22/25 Range/Units 18:07 WBC 6.1 (4.8-10.8) X10*3/uL RBC 4.36 L (4.60-5.80) X10*6/uL Hgb 14.3 (14.0-18.0) g/dl Hct 39.9 L (42.0-52.0) % MCV 91.5 (80.0-98.0) fL MCH 32.8 (27.0-33.0) pg MCHC 35.8 (31.0-36.0) g/dl RDW 14.8 (11.0-16.0) % Plt Count 96 L (160-400) X10*3/uL MPV 10.9 (9.4-12.4) fL Immature Gran % (Auto) 0.3 (0.0-0.4) % Neut % (Auto) 70.5 (45-73) % Lymph % (Auto) 16.4 L (20-40) % Appling % (Auto) 9.0 (2-11) % Eos % (Auto) 3.1 (0-4) % Baso % (Auto) 0.7 (0-2) % Lymph # (Auto) 1.0 L (1.2-4.9) X10*3/uL Appling # (Auto) 0.6 (0.1-1.2) X10*3/uL Eos # (Auto) 0.2 (0.0-0.4) X10*3/uL Baso # (Auto) 0.0 (0.0-0.2) X10*3/uL Abs Immat Gran (auto) 0.02 (0.00-0.03) X10*3/uL Absolute Neuts (auto) 4.3 (2.0-8.3) x10*3/uL Absolute Nucleated RBC 0.000 (0.0-0.012) X10*3/uL Nucleated RBC % (auto) 0.0 (0.0-0.2) /100WBC Sodium 141 (135-145) mmol/L Potassium 4.5 (3.3-5.1) mmol/L Chloride 110 H (96-108) mmol/L Carbon Dioxide 25 (22-29) mmol/L Anion Gap 11 L (12-20) BUN 12 (9-16) mg/dL Creatinine 0.85 (0.5-1.4) mg/dL Estim Creat Clear Calc 69.6 Estimated GFR > 60 Random Glucose 95 (60-115) mg/dL Calcium 9.1 (8.4-10.2) mg/dL Magnesium 1.8 (1.6-2.6) mg/dL Total Bilirubin 2.4 H (0.0-1.0) mg/dL AST 90 H (5-37) U/L ALT 56 H (0-40) U/L Alkaline Phosphatase 264 H (39-117) U/L Troponin I High Sens < 2.7 D (<3.5-35.0) ng/L NT-Pro-B Natriuret Pep 265.5 (<300) pg/mL Total Protein 7.2 (6.5-8.0) g/dL Albumin 3.3 L (3.5-5.0) g/dL Independent Interpretation I performed an independent interpretation of an: EKG (Sinus bradycardia with a rate of 52 beats minute. Short IN. No ST segment elevations or depressions), Plain X-Ray and CT Scan ([id number] pleural effusion) Interpretation: Moderate to large pleural effusion Radiology Impression Discussion of test interpretation with radiology: I have reviewed the radiologist's reading. Radiologist Impression: Findings: Moderate right pleural effusion. Adjacent airspace opacity. No left-sided pleural effusion. Clear left lung. Normal size heart. No acute fracture. IMPRESSION: Moderate right pleural effusion with adjacent atelectasis and/or infiltrate. This document has been electronically signed by: Haydee Painter MD on 01/22/2025 18:26:59 Findings: No central pulmonary embolism. New moderate right-sided pleural effusion. No pneumothorax. Moderate to severe emphysematous changes are redemonstrated. Right basilar atelectasis and/or consolidation also new. Postobstructive phenomenon not excluded. Small mediastinal and hilar lymph nodes are nonspecific and may be reactive. Redemonstration of the liver surface nodularity of the cirrhosis, cholelithiasis, free fluid, and splenomegaly in the imaged abdomen. Mild rib deformities appear old/chronic. Degenerative changes include imaged shoulders and imaged spine. Bridging osteophytes, facet arthropathy, and Schmorl's nodes are multifocal. IMPRESSION: 1. No central pulmonary embolism. 2. Moderate right-sided pleural effusion with underlying atelectasis/consolidation. Recommend attention on follow-up to ensure resolution. This document has been electronically signed by: Jaden Hudson MD on 01/22/2025 22:51:38 Discharge Plan Discharge Clinical Impression: Pleural effusion, right, Dyspnea on exertion Patient Disposition: Home, Self-Care Interventions: ED Discharge Assessment Last Done: 01/23/25 12:08 Discharge Date/Time: 01/23/25 12:08
[2025-01-22 17:57] VITALS: BP 167/73; PULSE 49; RESP 16; TEMP 36.8; O2SAT 94; BMI 24.9
--- NOTE | 2025-01-22 18:10 | MHC.EDTECH ---
pt refused both flu and covid swab. [employer] made aware
[2025-01-22 18:12] LABS: MANUAL DIFF FLAG NO
[2025-01-22 18:26] LABS: Hematocrit 39.9 % (42.0-52.0); Hemoglobin 14.3 g/dl (14.0-18.0); Imm Gran Abs Auto 0.02 X10*3/uL (0.00-0.03); Imm Gran Pct Auto 0.3 % (0.0-0.4); Lymphocytes Absolute Auto 1.0 X10*3/uL (1.2-4.9); Mean Corpuscular HGB Conc 35.8 g/dl (31.0-36.0); Mean Corpuscular Hemoglobin 32.8 pg (27.0-33.0); Mean Corpuscular Volume 91.5 fL (80.0-98.0); NRBC Abs Auto 0.000 X10*3/uL (0.0-0.012); NRBC Pct Auto 0.0 /100WBC (0.0-0.2); Red Blood Count 4.36 X10*6/uL (4.60-5.80); White Blood Count 6.1 X10*3/uL (4.8-10.8)
[2025-01-22 18:33] LABS: Alanine Aminotransferase 56 U/L (0-40); Albumin Level 3.3 g/dL (3.5-5.0); Alkaline Phosphatase 264 U/L (39-117); Anion Gap 11 (12-20); Aspartate Amino Transferase 90 U/L (5-37); Blood Urea Nitrogen 12 mg/dL (9-16); Calcium 9.1 mg/dL (8.4-10.2); Carbon Dioxide 25 mmol/L (22-29); Chloride 110 mmol/L (96-108); Creatinine Clr Calc Pharmacy 69.6; Estimated Glomerular Filt Rate > 60; Magnesium 1.8 mg/dL (1.6-2.6); Potassium 4.5 mmol/L (3.3-5.1); Sodium 141 mmol/L (135-145); Total Protein 7.2 g/dL (6.5-8.0)
[2025-01-22 18:38] LABS: NT Pro B Type Natriuretic Pept 265.5 pg/mL (<300)
[2025-01-22 18:39] LABS: Troponin-I High Sensitivity < 2.7 ng/L (<3.5-35.0)
[2025-01-22 18:44] LABS: Platelet Count 96 X10*3/uL (160-400)
[2025-01-22 20:34] VITALS: BP 170/60; PULSE 58; RESP 16; TEMP 36.6; O2SAT 95
--- NOTE | 2025-01-22 20:53 | PC.NURSE ---
Assumed care of pt, presents with chest pain x2 days, pt states that has been experiencing shortness of breath for the last x3 days, on wednesday he had a hard time catching his breath, hx of Afib takes Metoprolol, aaox4, nad, speaking in full sentences
[2025-01-22] MEDS: iohexoL 350 MG/ML 100 ML INFUS..BTL 65 ML IV (21:48)
[2025-01-22 22:47] VITALS: BP 142/66; PULSE 50; RESP 18; TEMP 36.6; O2SAT 96
--- NOTE | 2025-01-22 23:44 | P.HPHOSP_ITS ---
History of Present Illness Date of Service: 01/22/25 Attending physician on admission: Evan Bell Chief Complaint: Dyspnea Pt is a 70 yo male with PMH HTN, AFLUTTER not on AC (DX 10/2024 in ED, pt refused admission), HX of skull fx and R hand fx, tobacco dependence, hx of alcohol abuse (cessation 25 yrs ago), occasional marijuana use, cirrhosis, cholelithiasis, recent R cataract repair, Left cataract due for repair in 2 weeks, PNA age 8, resided at [facility] [phone] presents to ED with 3 days of increasing dyspnea, especially with exertion. 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 By 4Pm, pt decided to take a shower and then came in to the ED to be seen because the SOB persisted. Pt states he has had a day here and there over the last 2 months with SOB but pt would always get better. Pt states that even on Wednesday at his girlfriend's home, he was huffing and puffing after walking short distance form living room to kitchen. Pt denies chest pain, fever, chills, but reports a productive cough of thick white sputim, denies hemoptysis. Pt does still smoke, now less than a pack a day. Pt has been wearing the nicotine patch when he can. Pt has hx of smoking 3 PPD, then 2PPD 3 years ago and down to 1PPD about 1 year ago. Pt has not had a PCP for some time and is awaiting first appointment with new provider via [facility] later this month. Work up in the ED notes a moderate sized right pleural effusion via CT, neg for PE. No fever, no leukocytosis noted. Pt was in the ED October 2024, with chest pain and was diagnosed with aflutter. Pt refused admission then but was noted to be negative for PE but there was the presence of a new RLL nodule, 7X11. Pt is not currently requiring oxygen and denies pain, especially with breathing. Pt is reporting a mild SPANN. Pt does offer that his appetite has not been as good and he has old age wt loss . 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 If he learned he had a short time left, he would plan to go to [place] and live it up. Pt has no children and is estranged from his siblings. Pt does not live with his girlfriend. Pt is very open about his beliefs about things and does have capacity to make decisions for himself. Review of Systems 2 Review of Systems: Pt denies any chest pain, reports mild SOB with exertion, none at rest. Denies fever, chills, abd pain, N/V, diarrhea or constipation. Pt reporting a mild SPANN, frontal area. Yes all other systems are reviewed and are negative [facility] Medical History Cataract Marijuana use Alcohol abuse Tobacco dependence Pulmonary nodule Cirrhosis Dry mouth, unspecified History of rib fracture Nicotine dependence, cigarettes, uncomplicated Colonoscopy refused Immunization refused Tremor of both hands Lesion of skin of scalp Cataracts, bilateral Increasing shortness of breath Chronic cough Closed right hand fracture History of skull fracture Decreased hearing of both ears Cognitive capacity: A/O X3 Functional capacity: independent ambulation Family History Mother Alzheimer's dementia Uterine cancer Brother Hepatitis C Surgical History No pertinent past surgical history Social History Housing: House Unable to assess alcohol history related to: Unknown Patient Tobacco Use Status: Current everyday Tobacco user Years Smoked: (current smoker - onset 13, x 54yrs, max 1-2ppd, now 1/4 to 1ppd - 70pyh) e-Cigarette/Vaping Use: Never Used Advance Directives: No Advance Directives Information Provided: No service: No Current occupational status: employed Cognitive needs: No Hearing needs: No Vision needs: Yes Ebola Risk: Travel/Contact With Anyone From Affected Area/s: No Has Patient Experienced Ebola Symptoms: No Meds Allergies Allergy/AdvReac Type Severity Reaction Status Date / Time No Known Allergies Allergy Verified 01/22/25 18:00 Physical Exam 2 Vital Signs and Narrative: Vital Signs: Last Vital Signs Temp 97.8 F 01/22/25 22:47 Pulse 50 01/22/25 22:47 Resp 18 01/22/25 22:47 BP 142/66 H 01/22/25 22:47 Pulse Ox 96 01/22/25 22:47 O2 Del Method Room Air 01/22/25 22:47 BMI result Body Mass Index 24.9 Alert and orientated X3, able to give good history. Neuro: CN II-X11 intact, no deficits noted EYES: PERRLA, EOM intact, sclerae nonicteric, conjunctiva pink, R eye sclera redness from recent cataract repair ENT: hearing intact, no issues with swallowing, uvula midline, lips moist, nares patent no epistaxis Cardiac: S1 S2 RRR, Dimas 58, no murmur, no JVD, no edema in Lower ext Pulmonary: lungs diminshed B R>L Abdominal: BS active in all 4 quadrants, no guarding, no tenderness, no rebound MSK: strength 5/5 upper and 2/5 LLE, 3-4/5 RLE : no CVA tenderness no bladder distension Extremities: no edema in lower extremities, PT and DP pulses palpable +2 Psych: mood calm, judgement and insight good Skin: intact no new rashes or lesions Results Labs 01/22/25 18:07 01/22/25 18:07 Labs: Laboratory Results - last 24 hr 01/22/25 18:07 MCV 91.5 MCH 32.8 MCHC 35.8 RDW 14.8 Plt Count 96 L MPV 10.9 Immature Gran % (Auto) 0.3 Neut % (Auto) 70.5 Lymph % (Auto) 16.4 L Foster % (Auto) 9.0 Eos % (Auto) 3.1 Baso % (Auto) 0.7 Lymph # (Auto) 1.0 L Foster # (Auto) 0.6 Eos # (Auto) 0.2 Baso # (Auto) 0.0 Abs Immat Gran (auto) 0.02 Absolute Neuts (auto) 4.3 Absolute Nucleated RBC 0.000 Nucleated RBC % (auto) 0.0 Anion Gap 11 L Estim Creat Clear Calc 69.6 Estimated GFR > 60 Random Glucose 95 Calcium 9.1 Magnesium 1.8 Total Bilirubin 2.4 H AST 90 H ALT 56 H Alkaline Phosphatase 264 H Troponin I High Sens < 2.7 D NT-Pro-B Natriuret Pep 265.5 Total Protein 7.2 Albumin 3.3 L ECG Attestation: I personally reviewed and interpreted this ECG as follows: (SB ) Imaging Radiologist's Impressions: CT CHest Findings: No central pulmonary embolism. New moderate right-sided pleural effusion. No pneumothorax. Moderate to severe emphysematous changes are redemonstrated. Right basilar atelectasis and/or consolidation also new. Postobstructive phenomenon not excluded. Small mediastinal and hilar lymph nodes are nonspecific and may be reactive. Redemonstration of the liver surface nodularity of the cirrhosis, cholelithiasis, free fluid, and splenomegaly in the imaged abdomen. Mild rib deformities appear old/chronic. Degenerative changes include imaged shoulders and imaged spine. Bridging osteophytes, facet arthropathy, and Schmorl's nodes are multifocal. IMPRESSION: 1. No central pulmonary embolism. 2. Moderate right-sided pleural effusion with underlying atelectasis/consolidation. Recommend attention on follow-up to ensure resolution Assessment and Plan (1) Pleural effusion, right: Status: Acute Plan Pt is a 70 yo male with PMH HTN, AFLUTTER not on AC (DX 10/2024 in ED, pt refused admission), HX of skull fx and R hand fx, tobacco dependence, hx of alcohol abuse (cessation 25 yrs ago), occasional marijuana use, cirrhosis, cholelithiasis, recent R cataract repair, Left cataract due for repair in 2 weeks, PNA age 8, resided at [facility] presents to ED with 3 days of increasing dyspnea, especially with exertion. No evidence of hypoxia in ED. CT noted for moderate R pleural effusion with recent hx of RLL nodule 7X11. Pt being admitted for thoracentesis and testing of the fluid. 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 Pt currently with no PCP but has upcoming appt with new provider via [facility] later this month. Pt very direct about what he does and does not want moving forward. Pt is usually against being admitted but is agreeable noting the extent of his symptoms and pt would like to know diagnosis and states I am not afraid of dying . Right pleural effusion with hx of RLL nodule October 2024 Thoraacentesis ordered with lab testing of fluids May need bronchoscopy for BX Pulmonary/ Thoracic Surgery consults placed (not sure if we currently have thoracic services in place) Oncology consultation if indicated Oxygen and duonebs prn Continuous pulse oximetry NPO until procedure completed No obvious PNA, ABX not implemented on admisson BNP WNL, no hx of Heart failure Tobacco dependence Pt counseled on benefits of smoking cessation espeically in light of CT findings Pt requesting NRT, ordered 14 mgs based on how much pt currently smokes (less than a pack per day) Mild Transaminitis Noted cirrhosis of the liver on CT Pt has remote hx of alcohol abuse, stopped 25 years prior Trend CMP, if rising consider US ABD/ CT/ GI AFIB/ SB Currently SB via ECG on metoprolol Pt against anticoagulation and was dx 10/2024 and deferred admission for work up Pt takes ASA 81 mgs daily CHADsVAD score 1 Telemetry HTN Borderline on metoprolol MED REC Pending, pt states he takes one other medication for HTN but cannot recall name Low Na diet DVT prophylaxis: held for procedure in AM - thoracentesis MED REC PENDING FULL CODE STATUS Quality Stroke Does the patient have a stroke diagnosis?: No Reason for No Anti-thrombotic by Day Two: Contraindicated VTE Prior VTE?: No VTE Risk Level:: Medical - moderate - high VTE Device Contraindication: N/A - Device Ordered VTE Drug Contraindication: Treatment Not Indicated
[2025-01-23 03:56] LABS: Hematocrit 37.3 % (42.0-52.0); NRBC Abs Auto 0.000 X10*3/uL (0.0-0.012); NRBC Pct Auto 0.0 /100WBC (0.0-0.2); PLT CLUMP 1; SCAN SMEAR FLAG 1
[2025-01-23 03:58] LABS: Hemoglobin 13.6 g/dl (14.0-18.0); Imm Gran Abs Auto 0.03 X10*3/uL (0.00-0.03); Imm Gran Pct Auto 0.7 % (0.0-0.4); Lymphocytes Absolute Auto 1.0 X10*3/uL (1.2-4.9); Mean Corpuscular HGB Conc 36.5 g/dl (31.0-36.0); Mean Corpuscular Hemoglobin 32.9 pg (27.0-33.0); Mean Corpuscular Volume 90.1 fL (80.0-98.0); Red Blood Count 4.14 X10*6/uL (4.60-5.80)
[2025-01-23 04:15] LABS: Alanine Aminotransferase 52 U/L (0-40); Albumin Level 3.0 g/dL (3.5-5.0); Alkaline Phosphatase 230 U/L (39-117); Anion Gap 10 (12-20); Aspartate Amino Transferase 83 U/L (5-37); Blood Urea Nitrogen 11 mg/dL (9-16); Calcium 8.7 mg/dL (8.4-10.2); Carbon Dioxide 23 mmol/L (22-29); Chloride 111 mmol/L (96-108); Creatinine Clr Calc Pharmacy 88.3; Estimated Glomerular Filt Rate > 60; Potassium 4.4 mmol/L (3.3-5.1); Sodium 140 mmol/L (135-145); Total Protein 6.5 g/dL (6.5-8.0)
[2025-01-23 04:16] LABS: MANUAL DIFF FLAG SCAN; Platelet Count 72 X10*3/uL (160-400); White Blood Count 4.3 X10*3/uL (4.8-10.8)
[2025-01-23 04:46] VITALS: BP 152/57; PULSE 48; RESP 15; TEMP 36.9; O2SAT 95
--- NOTE | 2025-01-23 08:39 | PC.NURSE ---
Radiology leaving bedside s/p Thoracentesis at this time
[2025-01-23] MEDS: Lidocaine HCl 1 % MPF 5 ML VIAL SUBCUT (08:50)
[2025-01-23] MEDS: 0.9 % Sodium Chloride Flush 3 ML SYRINGE IVFLUSH (09:09)
[2025-01-23 09:36] LABS: MN% 75.1 %; PMN% 24.9 %; WBC Pleural Fluid 0.625 X10*3/uL
[2025-01-23 10:16] LABS: BF Shift QC OK YES; Lymphocytes Pleural Fluid 21 %; Monocytes Pleural Fluid 19 %; Neutrophils Pleural Fluid 15 %; Other Cells Plerual Fl 45 %
--- NOTE | 2025-01-23 10:30 | PHA.MEDREC ---
Addendum entered by Michelet Clinton PharmD 01/23/25 10:37: reviewed Original Note: Pharmacy Consult ? Medication Reconciliation Pharmacy has completed the medication reconciliation. Patient was able to name his medications. Patient hasn't stated Ketorolac 0.5 % eye drops and Moxifloxacin 0.5% eye drops. Patient last had his medications yesterday.
--- NOTE | 2025-01-23 10:48 | PM.CNPUL ---
History of Present Illness History of Present Illness Consult date: 01/23/25 Chief complaint: right thoracentesis, elevated LFTs Narrative: I have seen this 70 years old gentleman for pulmonary consultation while he is still in the emergency room suite. He has come to emergency room with increasing amount of shortness of breath on exertion for the last 2 months or so. He denies having had any acute respiratory infection or any injury to the chest. He has had increased cough with moderate amount of phlegm which has been mostly white . This gentleman has history of long-time smoking initially 3 packs a day which was reduced to 2 packs a day, now he has cut down to less than 1 pack a day. This past history of pneumonia at age 8 . He had resided at [place] 1975 to 1979. 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 Has history of atrial flutter since October 2024 he is on baby aspirin , no other specific medications. In general he has been relatively healthy, has lost a few lb of weight which he thinks is due to aging. Review of Systems Review of Systems: Yes all other systems are reviewed and are negative [facility] Past Medical History Medical History Cataract Marijuana use Alcohol abuse Tobacco dependence Pulmonary nodule Cirrhosis Dry mouth, unspecified History of rib fracture Nicotine dependence, cigarettes, uncomplicated Colonoscopy refused Immunization refused Tremor of both hands Lesion of skin of scalp Cataracts, bilateral Increasing shortness of breath Chronic cough Closed right hand fracture History of skull fracture Decreased hearing of both ears Family History Family History Mother Alzheimer's dementia Uterine cancer Brother Hepatitis C Surgical History Surgical History No pertinent past surgical history Social History Social History Housing: House Unable to assess alcohol history related to: Unknown Patient Tobacco Use Status: Current everyday Tobacco user Years Smoked: (current smoker - onset 11, x 54yrs, max 1-2ppd, now 1/4 to 1ppd - 70pyh) e-Cigarette/Vaping Use: Never Used Advance Directives: No Advance Directives Information Provided: No service: No Current occupational status: employed Cognitive needs: No Hearing needs: No Vision needs: Yes Travel History Ebola Risk: Travel/Contact With Anyone From Affected Area/s: No Has Patient Experienced Ebola Symptoms: No Meds Allergies Allergy/AdvReac Type Severity Reaction Status Date / Time No Known Allergies Allergy Verified 01/22/25 18:00 Active Medications: Current Medications Acetaminophen (Acetaminophen 325 Mg Tablet) 650 mg PO Q6H PRN PRN Reason: Pain, Mild 1-3,fever,headache Albuterol/Ipratropium (Albuterol/Iprat 2.5/0.5mg 3 Ml Ampul.Neb) 3 ml INHALE Q4H PRN PRN Reason: Shortness of Breath/Wheezing Calcium Carbonate (Calcium Carbonate 750 Mg Tab.Chew) 750 mg PO Q4H PRN PRN Reason: Heartburn Magnesium Hydroxide (Milk Of Magnesia 30 Ml Oral.Susp) 30 ml PO DAILY PRN PRN Reason: Constipation Melatonin (Melatonin 3 Mg Tablet) 6 mg PO BEDTIME PRN PRN Reason: Insomnia Nicotine (Nicotine 14 Mg Patch.Td24) 14 mg TRANSDERMA DAILY [facility] Last Admin: 01/23/25 09:09 Dose: Not Given Ondansetron HCl (Ondansetron Hcl 4 Mg/2 Ml Vial) 4 mg IVPUSH Q8H PRN PRN Reason: Nausea and Vomiting Polyethylene Glycol (Polyethylene Glycol 3350 17 Gm Powd.Pack) 17 gm PO DAILY PRN PRN Reason: Constipation Senna (Sennosides 8.6 Mg Tablet) 17.2 mg PO BEDTIME [facility] Sodium Chloride (0.9 % Sodium Chloride Flush 3 Ml Syringe) [facility] Last Admin: 01/23/25 09:09 Dose: 3 ml Home Medications ?Medication ?Instructions ?Recorded ?Confirmed ?Last Taken ?Type diltiazem HCl 120 mg capsule,24 120 mg PO DAILY 01/23/25 01/23/25 01/22/25 History hr,extended release Physical Exam Exam: Exam: Very pleasant gentleman and is not in any distress. Vital Signs: Vital Signs: Last Vital Signs Temp 98.4 F 01/23/25 04:46 Pulse 48 L 01/23/25 04:46 Resp 15 01/23/25 04:46 BP 152/57 H 01/23/25 04:46 Pulse Ox 95 01/23/25 04:46 O2 Del Method Room Air 01/23/25 04:46 BMI result Body Mass Index 24.9 Const: General: healthy appearing, comfortable, no acute distress, alert and awake Orientation/consciousness: patient oriented x3 HEENT: Head: Yes normal to inspection General nose exam: No nasal polyps present and No nasal discharge present Face and sinus: Yes sinuses nontender Mouth: oropharynx normal Throat: Yes posterior oropharynx normal Eyes: General: appearance normal, both eyes and all related structures Neck: Neck: Yes normal visual inspection, Yes no lymphadenopathy, Yes trachea midline and Yes no JVD Thyroid: Thyroid normal Chest: Chest palpation & inspection: normal inspection of the chest, normal palpation of entire chest wall and no tenderness Resp: Other: ,Chest is symmetrical percussion note slightly dull over the right base. Breath sounds are slightly distant with prolonged expiratory phase but no wheezes rhonchi or crepitations are heard. Cardio: Palpation: normal PMI Rate: regular rate Rhythm: regular rhythm Heart sounds: no gallops and no murmurs Peripheral pulses: Peripheral pulses 2+ throughout GI: Palpation (GI): Soft to palpation, nontender, No hepatosplenomegaly present and no masses Auscultation: normal bowel sounds Back/Spine/Pelvis: Thoracic/Lumbar Spine: thoracic and lumbar spine normal to inspection Skin: General skin exam: no rashes or lesions noted Neuro: General: patient oriented x3 and no focal motor deficits Cranial nerves: Yes CN's II-XII intact bilaterally Extrem: General: Yes normal to inspection, Yes no clubbing, cyanosis or edema and Yes no calf tenderness Psych: Speech and movement: Normal speech and movement present Results Laboratory Findings 01/23/25 03:49 01/23/25 03:49 Abnormal lab findings: Abnormal Labs 01/22/25 01/23/25 18:07 03:49 WBC 4.3 L RBC 4.36 L 4.14 L Hgb 13.6 L Hct 39.9 L 37.3 L MCHC 36.5 H Plt Count 96 L 72 L Immature Gran % (Auto) 0.7 H Lymph % (Auto) 16.4 L Lymph # (Auto) 1.0 L 1.0 L Chloride 110 H 111 H Anion Gap 11 L 10 L Total Bilirubin 2.4 H 2.4 H AST 90 H 83 H ALT 56 H 52 H Alkaline Phosphatase 264 H 230 H C-Reactive Protein 1.12 H Albumin 3.3 L 3.0 L Diagnostic Findings Chest x-ray: report reviewed CT scan - chest: report reviewed and image reviewed Assessment and Plan (1) Pleural effusion, right: Status: Acute (2) Nicotine dependence, cigarettes, uncomplicated: Status: Acute (3) Pulmonary nodule: Status: Acute Plan Patient has had thoracenteses already, large amount of yellowish fluid drained. There is only minimal residual effusion left. Pleural fluid being sent for all appropriate studies. Further planning will depend upon the findings, Neoplastic etiology of the effusion is strongly suspected. Other possibility is post pneumonic effusion. Patient does feel better and less short of breath. If he is stable he can be discharged home and followed up as outpatient. He is welcome to come to our pulmonary clinic for follow-up as outpatient. Procedures Date of Service Date of Service: 01/23/25
[2025-01-23 11:18] VITALS: BP 140/60; PULSE 52; RESP 14; TEMP 36.8; O2SAT 96
--- NOTE | 2025-01-23 11:53 | P.DS_ITS ---
DS: Providers Provider Date of Service: 01/23/25 Date of admission: 01/22/25 23:33 Date of discharge: 01/23/25 Primary care physician: None Physician Consults: 01/23/25 00:29 Consult to Thoracic Surgery Routine Consulting Provider: Marin Mark Reason for consultation: moderate pleural effusion, possible malignancy Has provider been notified: No 01/23/25 01:16 Consult to Pulmonology Routine Consulting Provider: [facility] Reason for consultation: moderate R pleural eff. ? malignancy Has provider been notified: No DS: Diagnosis Discharge Diagnosis (1) Pleural effusion, right: Status: Acute (2) Nicotine dependence, cigarettes, uncomplicated: Status: Acute (3) Pulmonary nodule: Status: Acute DS: Summary Hospital Course Hospital Course: 70 yo male with PMH HTN, AFLUTTER not on AC (DX 10/2024 in ED, pt refused admission), HX of skull fx and R hand fx, tobacco dependence, hx of alcohol abuse (cessation 25 yrs ago), occasional marijuana use, cirrhosis, cholelithiasis, recent R cataract repair, Left cataract due for repair in 2 weeks, PNA age 8, resided at [facility] [id number] presents to ED with 3 days of increasing dyspnea, especially with exertion. 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 By 4Pm, pt decided to take a shower and then came in to the ED to be seen because the SOB persisted. Pt states he has had a day here and there over the last 2 months with SOB but pt would always get better. Pt states that even on Wednesday at his girlfriend's home, he was huffing and puffing after walking short distance form living room to kitchen. Pt denies chest pain, fever, chills, but reports a productive cough of thick white sputim, denies hemoptysis. Pt does still smoke, now less than a pack a day. Pt has been wearing the nicotine patch when he can. Pt has hx of smoking 3 PPD, then 2PPD 3 years ago and down to 1PPD about 1 year ago. Pt has not had a PCP for some time and is awaiting first appointment with new provider via [facility] later this month. Seen by Interventional Radiology and thoracentesis performed. 1 L of clear yellow fluid removed and sent for appropriate testing. Patient was also seen in consultation by pulmonology who felt that given patient's improvement in symptoms patient can be DC in follow up with the PCP for which he has not appointment 01/26. Further plans based on forthcoming data from the pleural fluid Time Attestation Discharge Coordination Time (in mins): 35 Quality: Safe Use of Opioids Does Pt have an Active Cancer Diagnosis on the Problem List?: No Quality: Stroke Does the patient have a stroke diagnosis?: No Physical Exam Vital Signs: Vital Signs: Last Vital Signs Temp 98.2 F 01/23/25 11:18 Pulse 52 01/23/25 11:18 Resp 14 01/23/25 11:18 BP 140/60 H 01/23/25 11:18 Pulse Ox 96 01/23/25 11:18 O2 Del Method Room Air 01/23/25 11:18 BMI result Body Mass Index 24.9 Const: Other: Awake alert oriented x3 no acute distress Resp: Other: Clear to auscultation bilaterally no rales rhonchi or wheezes Cardio: Other: No S4; positive S1-S2; no S3 murmurs rubs or gallops GI: Other: Soft nontender nondistended normoactive bowel sounds Extrem: Other: No edema bilaterally DS: Data Data Completed and Pending Pending studies at discharge: Pending at discharge 01/23/25 02:08 Cytology [PTH] Routine Labs on day of discharge: Laboratory Results - last 24 hr 01/22/25 01/23/25 01/23/25 18:07 03:49 09:09 WBC 6.1 4.3 L RBC 4.36 L 4.14 L Hgb 14.3 13.6 L Hct 39.9 L 37.3 L MCV 91.5 90.1 MCH 32.8 32.9 MCHC 35.8 36.5 H RDW 14.8 14.6 Plt Count 96 L 72 L MPV 10.9 10.8 Immature Gran % (Auto) 0.3 0.7 H Neut % (Auto) 70.5 63.3 Lymph % (Auto) 16.4 L 22.4 [place] % (Auto) 9.0 9.9 Eos % (Auto) 3.1 3.0 Baso % (Auto) 0.7 0.7 Lymph # (Auto) 1.0 L 1.0 L [place] # (Auto) 0.6 0.4 Eos # (Auto) 0.2 0.1 Baso # (Auto) 0.0 0.0 Abs Immat Gran (auto) 0.02 0.03 Absolute Neuts (auto) 4.3 2.8 Absolute Nucleated RBC 0.000 0.000 Nucleated RBC % (auto) 0.0 0.0 Smear Tech's Comments VERIFIED Sodium 141 140 Potassium 4.5 4.4 Chloride 110 H 111 H Carbon Dioxide 25 23 Anion Gap 11 L 10 L BUN 12 11 Creatinine 0.85 0.67 Estim Creat Clear Calc 69.6 88.3 Estimated GFR > 60 > 60 Random Glucose 95 88 Calcium 9.1 8.7 Magnesium 1.8 Total Bilirubin 2.4 H 2.4 H AST 90 H 83 H ALT 56 H 52 H Alkaline Phosphatase 264 H 230 H Troponin I High Sens < 2.7 D C-Reactive Protein 1.12 H NT-Pro-B Natriuret Pep 265.5 Total Protein 7.2 6.5 Albumin 3.3 L 3.0 L Pleural WBC 0.625 Pleural RBC < 0.002 Pleural Neutrophils 15 Pleural Lymphocytes 21 Pleural Monocytes 19 Pleural Other Cells 45 Discharge Plan Discharge Anticipated Discharge Date/Time: 01/23/25 11:47 Patient Disposition: Home, Self-Care Discharge Diagnosis: Right pleural effusion Referrals: Physician,None [Primary Care Provider, Medical] - 1 Week Discharge Medications: Continued aspirin [Tomasz Chewable Aspirin] 81 mg tablet,chewable 81 mg PO DAILY Qty: 90 0RF metoprolol succinate 25 mg capsule,sprinkle,ER 24hr 25 mg PO DAILY Qty: 90 0RF diltiazem HCl 120 mg capsule,extended release 24 hr 120 mg PO DAILY Discharge Orders: Discharge Order (Routine); Ordered 01/23/25 Ordered By: Robson Díaz Diet: Advance to usual diet Activity on Discharge: As tolerated Stand Alone Forms: Patient Portal Discharge page Print Language: Wallisian Care Plan Goals: Resume all medicines as taken prior to hospitalization Health Concerns: Follow up with new PCP as scheduled Plan of Treatment: Based on results of pleural tap Assessment: See discharge summary
--- NOTE | 2025-01-23 11:59 | MHC.CM.PN ---
IMM 01/23/25, Pt. Lives alone, has a new PCP appt. with Dr. Randall Harris, [facility], this Fri. Pt. does not use home health services or DME. HCP discussed, he declined to complete one. He will drive himself home at DC, car is in lot. DCP: home, self care, CM to follow for DC needs.
[2025-01-23 12:08] VITALS: BP 140/60; PULSE 52; RESP 14; TEMP 36.8; O2SAT 96
[2025-01-25 08:23] LABS: Albumin Pleural Fluid 1.3
== END 2025-01-23 12:08 | disposition home or self-care (01) | DRG 187 ==
LOC: HO.ED 23:17 → HO.EDOVER 01-23 00:24
PROVIDERS: Nurse Practitioner Family; Registered Nurse Emergency; Admitting Provider Internal Medicine; Emergency Provider Emergency Medicine; PCP Family Medicine; Visit Provider Hospitalist
DX: J90 Pleural effusion, not elsewhere classified (principal); I48.92 Unspecified atrial flutter; F17.210 Nicotine dependence, cigarettes, uncomplicated; I10 Essential (primary) hypertension; Z71.6 Tobacco abuse counseling; K74.69 Other cirrhosis of liver; F10.11 Alcohol abuse, in remission; Z79.82 Long term (current) use of aspirin; Z79.899 Other long term (current) drug therapy
CPT/HCPCS: 32555; 36415; 71046; 71275; 76705; 80053; 82042; 82150; 82945; 83615; 83735; 83880; 83986; 84157; 84484; 85025; 86140; 87070; 87073; 87102; 87116; 87205; 87206; 89051; 93005; 99285; J2003; Q9967

== ENCOUNTER → 2025-01-22 17:19 | Outpatient (BNV) | payer MEDICARE, SELFPAY | PROVIDERS: Admitting Provider Internal Medicine; Emergency Provider Emergency Medicine; Visit Provider Internal Medicine | DX: R00.1 Bradycardia, unspecified (principal) | CPT/HCPCS: 93010 ==

== ENCOUNTER → 2025-01-22 17:58 | Outpatient (BNV) | payer MEDICARE, SELFPAY | PROVIDERS: Visit Provider Radiology Diagnostic Radiology | DX: J90 Pleural effusion, not elsewhere classified (principal) | CPT/HCPCS: 71046; 71275 ==

== ENCOUNTER 2025-01-22 23:33 | Outpatient (BNV) | payer MEDICARE, SELFPAY | END 2025-01-23 08:40 | PROVIDERS: Admitting Provider Internal Medicine; Emergency Provider Emergency Medicine; Visit Provider Radiology Diagnostic Radiology | DX: J90 Pleural effusion, not elsewhere classified (principal); R74.01 Elevation of levels of liver transaminase levels; K80.20 Calculus of gallbladder without cholecystitis without obstruction; K74.60 Unspecified cirrhosis of liver | CPT/HCPCS: 32555; 76705; 99499 ==

== ENCOUNTER → 2025-01-22 23:33 | Outpatient (BNV) | payer MEDICARE, SELFPAY | PROVIDERS: Admitting Provider Internal Medicine; Emergency Provider Emergency Medicine; Visit Provider Nurse Practitioner Family | DX: J90 Pleural effusion, not elsewhere classified (principal); F17.210 Nicotine dependence, cigarettes, uncomplicated; R91.1 Solitary pulmonary nodule | CPT/HCPCS: 99223; 99239 ==

== ENCOUNTER → 2025-01-22 23:33 | Outpatient (BNV) | payer MEDICARE, SELFPAY | PROVIDERS: Admitting Provider Internal Medicine; Emergency Provider Emergency Medicine; Visit Provider Internal Medicine | DX: J90 Pleural effusion, not elsewhere classified (principal); F17.210 Nicotine dependence, cigarettes, uncomplicated; R91.1 Solitary pulmonary nodule | CPT/HCPCS: 99223 ==